=== PATIENT | male | born 2000 | race Two or more races ===

== ENCOUNTER 2022-12-27 07:41 | Emergency (ER) | payer OTHER ==
[2022-12-27] MEDS ORDERED: Lidocaine 1% 5 ML VIAL INJECT ONE (08:00)
[2022-12-27] MEDS ORDERED: Bacitracin Oint 1 GM U/D Packet TOP ONE (08:46)
== END 2022-12-27 09:00 | disposition home or self-care (01) ==
LOC: MW.ED 07:41
DX: S61.412A Laceration without foreign body of left hand, initial encounter (principal); F17.210 Nicotine dependence, cigarettes, uncomplicated; W26.8XXA Contact with other sharp object(s), not elsewhere classified, initial encounter
CPT/HCPCS: 12002; 99282; 99283; J3490